=== PATIENT | male | born 1935 | race Hispanic/Latino ===

== ENCOUNTER 2024-03-10 12:29 | Inpatient (IN) | payer MEDICARE, MEDICAID ==
[~2024-03-10 12:29] MED LIST: Iopamidol-370 76% 500 ML MDV (1 ML CHARGE) ONE
[2024-03-10 14:18] LABS: #Basophils Less than 0.03 10x3/uL (0.0-0.2); %Basophils 0.3 % (0.0-1.0); %Eosinophils 0.5 % (0.0-10.0); %Lymphocytes 5.4 % (21.0-51.0); %Neutrophils 79.3 % (42.0-75.0); Hematocrit 38.7 % (42.0-52.0); Hemoglobin 12.6 g/dL (14.0-18.0); Mean Corpuscular HGB CONC 32.6 g/dL (32.0-36.0); Mean Corpuscular Hemoglobin 30.6 pg (27.0-31.0); Mean Corpuscular Volume 93.9 fL (78.0-98.0); Mean Platelet Volume 10.3 fL (7.4-10.4); Platelet Count 181 10x3/uL (130-400); Red Blood Cell (RBC) Count 4.12 mill/uL (4.70-6.10)
[2024-03-10 14:43] LABS: ALT (SGPT) Less than 7 U/L (Less than 45); AST (SGOT) 18 U/L (11-34); Albumin 2.8 g/dL (3.1-4.5); Alkaline Phosphatase 107 U/L (40-110); Anion Gap 10 mmol/L (10-20); BUN (Urea Nitrogen) 18 mg/dL (8.4-25.7); Bilirubin, Total 0.8 mg/dL (0.3-1.2); Calc. Creatinine Clearance 0 mL/min (70-130); Calcium 8.3 mg/dL (7.8-10.44); Carbon Dioxide 27 mmol/L (23-31); Chloride 108 mmol/L (98-107); Estimated GFR 93; Globulin 3.5 g/dL (2.4-3.5); Glucose 138 mg/dL (83-110); Lipase 8 U/L (8-78); Potassium 3.9 mmol/L (3.5-5.1); Protein, Total 6.3 g/dL (5.8-8.1); Sodium 141 mmol/L (136-145)
[2024-03-10 14:50] LABS: Troponin I 0.028 ng/mL (< 0.028)
[2024-03-10] MEDS ORDERED: Ondansetron PF 4 MG/2 ML Vial IVP PRN (18:29)
[2024-03-10] MEDS ORDERED: Acetaminophen 650 MG Suppository PR PRN (18:29)
[2024-03-10] MEDS ORDERED: Ondansetron ODT 4 MG TAB PO PRN (18:29)
[2024-03-10] MEDS ORDERED: Azithromycin 500 MG in Sodium Chloride 0.9% 250 ML 250 ML IVPB SCH (18:30)
[2024-03-10] MEDS ORDERED: cefTRIAXone\\ROCEPHIN 2 GM in Sodium Chloride 0.9% 100 ML IVPB SCH (18:30)
[2024-03-10 19:55] VITALS: BMI 28.2
[2024-03-10] MEDS: Piperacillin/Tazobactam 3.375 GM in Sodium Chloride 0.9% 100 ML IVPB SCH ×2 (20:14→23:15)
[2024-03-10] MEDS: Acetaminophen 325 MG TAB PO PRN (20:15)
[2024-03-10] MEDS: Senokot S 8.6-50 MG TAB PO PRN (20:16)
[2024-03-10] MEDS: traMADol HCl 50 MG TAB PO SCH (20:26)
[2024-03-10] MEDS: Tamsulosin HCl 0.4 MG CAP PO SCH (20:26)
[2024-03-10] MEDS: Atorvastatin Calcium 10 MG TAB PO SCH (20:26)
[2024-03-10 20:54] LABS: INR-International Normal Ratio 3.1; Prothrombin Time 31.9 sec (12.0-14.7)
[2024-03-10 20:56] LABS: PTT 70.1 sec (22.9-36.1)
[2024-03-10] MEDS ORDERED: Famotidine 20 MG TAB PO SCH (21:00)
[2024-03-10] MEDS: traZODone HCl 50 MG TAB PO SCH (23:15)
[2024-03-10] MEDS: FLU (Fluad Triv) TS24-25 (65UP)/MF59C/PF 45 MCG/0.5 ML Syringe IM ONE (23:28)
[2024-03-11] MEDS: Communication Order-Pharmacy FS ONE (00:59)
[2024-03-11 06:34] LABS: #Basophils Less than 0.03 10x3/uL (0.0-0.2); #Eosinophils Less than 0.03 10x3/uL (0.0-0.7); %Lymphocytes 5.8 % (21.0-51.0); %Monocytes 2.1 % (0.0-10.0); %Neutrophils 91.6 % (42.0-75.0); Hematocrit 37.2 % (42.0-52.0); Hemoglobin 12.4 g/dL (14.0-18.0); Mean Corpuscular HGB CONC 33.3 g/dL (32.0-36.0); Mean Corpuscular Hemoglobin 30.8 pg (27.0-31.0); Mean Corpuscular Volume 92.5 fL (78.0-98.0); Mean Platelet Volume 10.7 fL (7.4-10.4); Platelet Count 202 10x3/uL (130-400); RBC Distribution Width 14.6 % (11.5-14.5); Red Blood Cell (RBC) Count 4.02 mill/uL (4.70-6.10)
[2024-03-11 06:44] LABS: INR-International Normal Ratio 2.9; Prothrombin Time 30.8 sec (12.0-14.7)
[2024-03-11 06:45] LABS: PTT 75.8 sec (22.9-36.1)
[2024-03-11 06:51] LABS: Anion Gap 12 mmol/L (10-20); BUN (Urea Nitrogen) 16 mg/dL (8.4-25.7); Calc. Creatinine Clearance 81 mL/min (70-130); Calcium 8.7 mg/dL (7.8-10.44); Carbon Dioxide 31 mmol/L (23-31); Chloride 102 mmol/L (98-107); Estimated GFR 89; Glucose 142 mg/dL (83-110); Potassium 3.9 mmol/L (3.5-5.1); Sodium 141 mmol/L (136-145)
[2024-03-11] MEDS: Furosemide 20 MG TAB PO SCH (08:19)
[2024-03-11] MEDS: Pantoprazole 40 MG DR.TAB PO SCH (08:19)
[2024-03-11] MEDS: Warfarin Sodium 2 MG TAB PO SCH (18:07)
[2024-03-11] MEDS: traZODone HCl 50 MG TAB PO PRN (21:04)
[2024-03-12 06:13] LABS: #Basophils Less than 0.03 10x3/uL (0.0-0.2); #Eosinophils Less than 0.03 10x3/uL (0.0-0.7); %Basophils 0.2 % (0.0-1.0); %Eosinophils 0.2 % (0.0-10.0); %Lymphocytes 8.8 % (21.0-51.0); %Neutrophils 79.5 % (42.0-75.0); Hematocrit 38.9 % (42.0-52.0); Hemoglobin 12.7 g/dL (14.0-18.0); Mean Corpuscular HGB CONC 32.6 g/dL (32.0-36.0); Mean Corpuscular Hemoglobin 30.3 pg (27.0-31.0); Mean Corpuscular Volume 92.8 fL (78.0-98.0); Mean Platelet Volume 10.3 fL (7.4-10.4); Platelet Count 197 10x3/uL (130-400); RBC Distribution Width 14.8 % (11.5-14.5); Red Blood Cell (RBC) Count 4.19 mill/uL (4.70-6.10)
[2024-03-12 06:30] LABS: INR-International Normal Ratio 2.5; PTT 60.9 sec (22.9-36.1); Prothrombin Time 27.5 sec (12.0-14.7)
[2024-03-12 06:39] LABS: Anion Gap 13 mmol/L (10-20); BUN (Urea Nitrogen) 26 mg/dL (8.4-25.7); Calc. Creatinine Clearance 61 mL/min (70-130); Calcium 8.6 mg/dL (7.8-10.44); Carbon Dioxide 30 mmol/L (23-31); Chloride 104 mmol/L (98-107); Estimated GFR 82; Glucose 96 mg/dL (83-110); Potassium 4.4 mmol/L (3.5-5.1); Sodium 143 mmol/L (136-145)
[2024-03-13 05:51] LABS: #Basophils 0.03 10x3/uL (0.0-0.2); #Eosinophils Less than 0.03 10x3/uL (0.0-0.7); %Basophils 0.5 % (0.0-1.0); %Eosinophils 0.4 % (0.0-10.0); %Lymphocytes 11.7 % (21.0-51.0); %Monocytes 13.7 % (0.0-10.0); %Neutrophils 73.5 % (42.0-75.0); Hematocrit 38.6 % (42.0-52.0); Hemoglobin 12.8 g/dL (14.0-18.0); Mean Corpuscular HGB CONC 33.2 g/dL (32.0-36.0); Mean Corpuscular Hemoglobin 30.5 pg (27.0-31.0); Mean Corpuscular Volume 91.9 fL (78.0-98.0); Mean Platelet Volume 10.5 fL (7.4-10.4); Platelet Count 204 10x3/uL (130-400); RBC Distribution Width 14.4 % (11.5-14.5)
[2024-03-13 06:04] LABS: INR-International Normal Ratio 2.2; PTT 50.4 sec (22.9-36.1); Prothrombin Time 24.4 sec (12.0-14.7)
[2024-03-13 06:19] LABS: Anion Gap 13 mmol/L (10-20); BUN (Urea Nitrogen) 13 mg/dL (8.4-25.7); Calc. Creatinine Clearance 73 mL/min (70-130); Calcium 8.4 mg/dL (7.8-10.44); Carbon Dioxide 28 mmol/L (23-31); Chloride 101 mmol/L (98-107); Estimated GFR 86; Glucose 85 mg/dL (83-110); Potassium 3.7 mmol/L (3.5-5.1); Sodium 138 mmol/L (136-145)
[2024-03-13] MEDS: Bisacodyl 5 MG TAB PO PRN (09:56)
[2024-03-13] MEDS: Warfarin Sodium 2.5 MG TAB PO SCH (16:26)
[2024-03-13] MEDS: Acetaminophen 650 MG/20.3 ML UDCUP PO PRN (17:17)
[2024-03-14 06:12] LABS: #Basophils 0.04 10x3/uL (0.0-0.2); %Basophils 0.8 % (0.0-1.0); %Lymphocytes 12.5 % (21.0-51.0); %Monocytes 15.3 % (0.0-10.0); Hematocrit 38.3 % (42.0-52.0); Hemoglobin 12.5 g/dL (14.0-18.0); Mean Corpuscular HGB CONC 32.6 g/dL (32.0-36.0); Mean Corpuscular Hemoglobin 30.5 pg (27.0-31.0); Mean Corpuscular Volume 93.4 fL (78.0-98.0); Mean Platelet Volume 10.4 fL (7.4-10.4); Platelet Count 200 10x3/uL (130-400); RBC Distribution Width 14.2 % (11.5-14.5)
[2024-03-14 06:24] LABS: INR-International Normal Ratio 2.1; PTT 52.1 sec (22.9-36.1); Prothrombin Time 23.9 sec (12.0-14.7)
[2024-03-14 07:10] LABS: Anion Gap 8 mmol/L (10-20); BUN (Urea Nitrogen) 17 mg/dL (8.4-25.7); Calc. Creatinine Clearance 66 mL/min (70-130); Calcium 8.5 mg/dL (7.8-10.44); Carbon Dioxide 31 mmol/L (23-31); Chloride 103 mmol/L (98-107); Estimated GFR 84; Glucose 108 mg/dL (83-110); Potassium 3.8 mmol/L (3.5-5.1); Sodium 138 mmol/L (136-145)
[2024-03-14] MEDS: Ciprofloxacin 0.3% Ophth Soln 2.5 ml Bottle EA EYE SCH (20:35)
[2024-03-15 09:31] LABS: #Basophils 0.03 10x3/uL (0.0-0.2); %Basophils 0.6 % (0.0-1.0); %Eosinophils 1.1 % (0.0-10.0); %Lymphocytes 12.4 % (21.0-51.0); %Monocytes 11.5 % (0.0-10.0); Hematocrit 43.5 % (42.0-52.0); Hemoglobin 14.4 g/dL (14.0-18.0); Mean Corpuscular HGB CONC 33.1 g/dL (32.0-36.0); Mean Corpuscular Volume 90.6 fL (78.0-98.0); Mean Platelet Volume 10.8 fL (7.4-10.4); Platelet Count 239 10x3/uL (130-400); RBC Distribution Width 14.4 % (11.5-14.5)
[2024-03-15 09:42] LABS: INR-International Normal Ratio 1.8; Prothrombin Time 21.2 sec (12.0-14.7)
[2024-03-15 09:43] LABS: PTT 44.4 sec (22.9-36.1)
[2024-03-15 09:48] LABS: Anion Gap 12 mmol/L (10-20); BUN (Urea Nitrogen) 18 mg/dL (8.4-25.7); Calc. Creatinine Clearance 68 mL/min (70-130); Calcium 8.8 mg/dL (7.8-10.44); Carbon Dioxide 25 mmol/L (23-31); Chloride 106 mmol/L (98-107); Estimated GFR 85; Glucose 109 mg/dL (83-110); Potassium 3.9 mmol/L (3.5-5.1); Sodium 139 mmol/L (136-145)
[2024-03-15] MEDS: Warfarin Sodium 2 MG TAB PO SCH (17:50)
[2024-03-16 05:32] LABS: #Basophils Less than 0.03 10x3/uL (0.0-0.2); %Basophils 0.3 % (0.0-1.0); %Eosinophils 1.2 % (0.0-10.0); %Lymphocytes 12.8 % (21.0-51.0); %Monocytes 11.2 % (0.0-10.0); %Neutrophils 74.3 % (42.0-75.0); Hematocrit 40.8 % (42.0-52.0); Hemoglobin 13.7 g/dL (14.0-18.0); INR-International Normal Ratio 1.8; Mean Corpuscular HGB CONC 33.6 g/dL (32.0-36.0); Mean Corpuscular Hemoglobin 30.6 pg (27.0-31.0); Mean Corpuscular Volume 91.3 fL (78.0-98.0); Mean Platelet Volume 10.3 fL (7.4-10.4); Platelet Count 243 10x3/uL (130-400); Prothrombin Time 21.1 sec (12.0-14.7); RBC Distribution Width 14.4 % (11.5-14.5); Red Blood Cell (RBC) Count 4.47 mill/uL (4.70-6.10)
[2024-03-16 06:43] LABS: Anion Gap 13 mmol/L (10-20); BUN (Urea Nitrogen) 18 mg/dL (8.4-25.7); Calc. Creatinine Clearance 61 mL/min (70-130); Calcium 8.6 mg/dL (7.8-10.44); Carbon Dioxide 28 mmol/L (23-31); Chloride 106 mmol/L (98-107); Estimated GFR 82; Glucose 92 mg/dL (83-110); Potassium 3.8 mmol/L (3.5-5.1); Sodium 143 mmol/L (136-145)
[2024-03-16 12:13] VITALS: BP 154/80; TEMP 98.4
== END 2024-03-16 13:40 | DRG 193 ==
LOC: ERS 12:29 → T4-A 17:05 → OBSVTOIN 18:39
PROVIDERS: ADMIT Family Medicine; ATTEND Internal Medicine
DX: J18.9 Pneumonia, unspecified organism (principal); J96.01 Acute respiratory failure with hypoxia; J90 Pleural effusion, not elsewhere classified; J43.9 Emphysema, unspecified; I48.91 Unspecified atrial fibrillation; E78.5 Hyperlipidemia, unspecified; Z66 Do not resuscitate; I10 Essential (primary) hypertension; M13.80 Other specified arthritis, unspecified site; N40.0 Benign prostatic hyperplasia without lower urinary tract symptoms; R53.81 Other malaise; Z99.3 Dependence on wheelchair; Z79.01 Long term (current) use of anticoagulants; Z95.2 Presence of prosthetic heart valve; Z87.891 Personal history of nicotine dependence; Z88.1 Allergy status to other antibiotic agents
CPT/HCPCS: 36415; 36416; 71045; 71275; 74177; 80048; 80053; 83605; 83690; 83735; 83880; 84484; 85025; 85610; 85730; 87040; 93005; 96361; 96365; 96375; G0378; J2543; Q9967